=== PATIENT | female | born 1990 | race Hispanic/Latino ===

== ENCOUNTER 2022-08-23 11:44 | Emergency (ER) | payer OTHER, SELFPAY ==
[2022-08-23 11:53] VITALS: BP 140/97; PULSE 80; RESP 12; TEMP 36.4; O2SAT 100
--- NOTE | 2022-08-23 11:54 | ED.FEMALEGU ---
HPI - Female Genitourinary General Chief complaint: Urogenital-Female Stated complaint: UTI Time Seen by Provider: 08/23/22 11:55 Source: patient Mode of arrival: ambulatory Limitations: no limitations History of Present Illness HPI Narrative: Claudia is a 32-year-old female patient presenting to the clinic today with complaints of possible urinary tract infection x3 days. She reports she has had burning at the end of her urinary stream as well as feeling as though she was having incomplete emptying. Denies any abdominal pain, flank pain, fever, or chills. Related Data Allergies Allergy/AdvReac Type Severity Reaction Status Date / Time No Known Allergies Allergy Verified 07/13/21 14:53 Review of Systems Review of Systems: Pertinent positives per HPI. Patient denies any fever, chills, rash, headache, visual changes, dizziness, cough, runny nose, sore throat, shortness of breath, chest pain, palpitations, nausea, vomiting, diarrhea, constipation, abdominal pain. PMFSH Comments At the time of my signature, I reviewed and agree with the nursing past medical, surgical, social, and family history. There is no relevant family history pertinent to the patient complaint. Exam Narrative: General: Well-developed, well nourished, in no apparent distress. Head: Normocephalic, atraumatic. Cardio: Regular rate and rhythm, s1 and s2 normal, no murmur appreciated. Resp: Clear to auscultation bilaterally, no rhonchi, rales, wheezing or rubs. Abdomen: Soft, pliable, bowel sounds present in all quadrants, non-tender to palpation, no organomegly, no CVAT tenderness. Course Course Emergency Course: Portions of this record may have been created with voice recognition software. Level of Care: Express Care Visit Vital Signs Vital signs: Vital Signs Temperature 36.4 C 08/23/22 11:53 Pulse Rate 80 08/23/22 11:53 Respiratory Rate 12 08/23/22 11:53 Blood Pressure 140/97 H 08/23/22 11:53 Pulse Oximetry 100 08/23/22 11:53 Oxygen Delivery Room Air 08/23/22 11:53 Temperature 36.4 C 08/23/22 11:53 Pulse Rate 80 08/23/22 11:53 Respiratory Rate 12 08/23/22 11:53 Blood Pressure 140/97 H 08/23/22 11:53 Pulse Oximetry 100 08/23/22 11:53 Oxygen Delivery Room Air 08/23/22 11:53 Vital signs reviewed MDM - Female Genitourinary MDM Narrative Medical decision making narrative: At the time of visit patient is resting comfortably on the exam table. Urinalysis shows 1+ blood, trace of protein, and 1+ leukocytes. We will send for culture. Will place the patient on Bactrim DS 1 tab twice daily x3 days. Supportive measures were discussed with the patient she voiced understanding of discharge instructions and agrees to treatment plan Differential Diagnosis Differential diagnosis: Likely urinary tract infection and cystitis Lab Data Labs: Urine Glucose Negative Reference Range: Negative Urine Bilirubin Negative Reference Range: Negative Urine Ketone Negative Reference Range: Negative Urine Specific [place] 1.020 Reference Range:1.001-1.035 Urine Blood 1+ Reference Range: Negative * * Urine pH 7.0 Reference Range: 5.0-9.0 Urine Protein Trace Reference Range: Negative Urine Urobilinogen 0.2 Reference Range: 0.2-1.0 Urine Nitrate Negative Reference Range: Negative
== END 2022-08-23 12:05 | disposition home or self-care (01) ==
PROVIDERS: Emergency Provider Nurse Practitioner Family; PCP Family Medicine
DX: N30.01 Acute cystitis with hematuria (principal); J45.909 Unspecified asthma, uncomplicated
CPT/HCPCS: 81003; 87086; 87088; 99213; G0463

== ENCOUNTER 2023-06-03 13:43 | Emergency (ER) | payer OTHER, SELFPAY ==
[2023-06-03 13:55] VITALS: BP 156/109; PULSE 116; RESP 16; TEMP 37.7; O2SAT 100
--- NOTE | 2023-06-03 14:37 | ED.GENADULT ---
HPI - General Adult General Chief complaint: Upper Respiratory Infection Stated complaint: Sore Throat Time Seen by Provider: 06/03/23 14:37 Source: patient Mode of arrival: ambulatory Limitations: no limitations History of Present Illness HPI narrative: 33-year-old female presents with complaint of cough for 3 days. Woke up today with sore throat. Denies body aches, fever, headache, chills. Has not taking any [id number] medications to treat her symptoms. All systems reviewed and negative except as noted above. Related Data Allergies Allergy/AdvReac Type Severity Reaction Status Date / Time No Known Allergies Allergy Verified 06/03/23 14:20 Review of Systems Review of Systems: CONSTITUTIONAL: Denies fever, chills, or sweats. EYES: Denies visual changes, redness, or discharge. ENT: Denies rhinorrhea, congestion . Reports sore throat. Denies otalgia. CARDIOVASCULAR: Denies chest pain, palpitations, or edema. RESPIRATORY: reports cough. Denies dyspnea. GASTROINTESTINAL: Denies abdominal pain, nausea, vomiting, or diarrhea. GENITOURINARY: Denies dysuria or hematuria. SKIN: Denies rash or itching. MUSCULOSKELETAL: Denies back pain, joint pain, or myalgia. NEUROLOGIC: Denies headache, numbness, or weakness. PSYCHIATRIC: Denies anxiety or depression. All other systems reviewed are negative, except as documented in HPI. PMFSH Comments At time of signature, agree with nursing past medical, surgical, social and family history. There is no relevant family history pertinent to the presenting complaint. Exam Narrative: GENERAL: This is a well-nourished, well-developed patient, in no apparent distress. HEAD: normocephalic, atraumatic. EYES: PERRL. Sclera clear/white. Vision is grossly intact. EARS: External ears normal, auditory canals clear and without drainage, TMs normal without perforation. Hearing grossly intact. NOSE: External nose normal with no obvious nasal discharge, nares without redness, no rhinorrhea. THROAT: Mucous membranes moist, erythema and swelling to posterior pharynx, tonsils 1+ bilaterally without exudates. NECK: Neck supple, non-tender without lymphadenopathy, masses or thyromegaly. CARDIOVASCULAR: Regular rate and rhythm without murmurs, gallops, or rubs. RESPIRATORY: Clear to auscultation. Breath sounds equal bilaterally. No wheezes, rales, or rhonchi. SKIN: warm, Dry, intact with no suspicious lesions or rash, good texture and turgor. NEURO: awake, alert, and oriented to person, place and time. There were no obvious focal neurologic abnormalities. EXTREMITIES: No joint tenderness, effusion, or edema noted. Course Course Level of Care: Express Care Visit Vital Signs Vital signs: Vital Signs Temperature 37.7 C H 06/03/23 13:55 Pulse Rate 116 H 06/03/23 13:55 Respiratory Rate 16 06/03/23 13:55 Blood Pressure 156/109 H 06/03/23 13:55 Pulse Oximetry 100 06/03/23 13:55 Oxygen Delivery Room Air 06/03/23 13:55 Temperature 37.7 C H 06/03/23 13:55 Pulse Rate 116 H 06/03/23 13:55 Respiratory Rate 16 06/03/23 13:55 Blood Pressure 156/109 H 06/03/23 13:55 Pulse Oximetry 100 06/03/23 13:55 Oxygen Delivery Room Air 06/03/23 13:55 Reviewed heart rate 98 auscultated Medical Decision Making MDM Narrative Medical decision making narrative: Patient is aware of diagnosis, understands and agrees to treatment plan. Anticipatory guidance given. Patient agrees to follow-up as directed and is aware of reasons to seek care at the emergency department. Portions of this record may have been created with voice recognition software positive rapid strep test. Will treat patient with antibiotic. Differential Diagnosis Differential Diagnosis: strep throat Vital Signs Vital Signs: Vital Signs Temperature 37.7 C H 06/03/23 13:55 Pulse Rate 116 H 06/03/23 13:55 Respiratory Rate 16 06/03/23 13:55 Blood Pressure 156/109 H 06/03/23 13:
== END 2023-06-03 14:50 | disposition home or self-care (01) ==
PROVIDERS: Emergency Provider Nurse Practitioner Family; PCP Family Medicine
DX: J02.0 Streptococcal pharyngitis (principal)
CPT/HCPCS: 87880; 99213; G0463

== ENCOUNTER 2023-10-15 13:57 | Emergency (ER) | payer OTHER, SELFPAY ==
--- NOTE | ~2023-10-15 | CT_ITS ---
EXAMINATION: CT abdomen pelvis wo con DATE: 10/15/2023 15:22 INDICATION: Kidney stones TECHNIQUE: Computed tomography (CT) of the abdomen and pelvis was performed without intravenous contr ast. The dose-length product was 1496.48 mGy-cm. Automated exposure control and iterative reconstruct ion technique were employed. COMPARISON: CT dated 05/15/2015. FINDINGS: Lung bases are unremarkable. Heart size normal. No significant pleural or pericardial effus ion. There is a 3 mm nonobstructing right renal stone. Fatty infiltration of the liver. The spleen, p ancreas, adrenal glands are unremarkable. There is a 2 mm nonobstructing left renal stone. Gallbladde r is contracted. Nonobstructive bowel gas pattern. Normal appendix. Colonic diverticulosis without ev idence for diverticulitis. No acute osseous abnormality. Fat-containing umbilical hernia. No signific ant vascular abnormality. Nonenlarged retroperitoneal lymph nodes, likely reactive. No free air or fr ee fluid. IMPRESSION: 1. Nonobstructing bilateral nephrolithiasis. Reviewed, dictated and finalized at location B.
[2023-10-15 14:13] VITALS: BP 156/103; PULSE 87; RESP 18; TEMP 36.5; O2SAT 99
[2023-10-15 14:54] LABS: Appearance Urine Clear (Clear); Bacteria Urine None Seen /hpf; Bilirubin Urine Negative (Negative); Blood Urine 3+ (Negative); Color Urine Yellow (Yellow); Glucose Urine UA Negative (Negative); Ketones Urine Trace mg/dL (Negative); Leukocyte Esterase Ur Negative LEU/UL (Negative); Mucus Urine Present /lpf; Need Manual Microscopic Reviewed; Nitrate Urine Negative (Negative); Protein Urine Trace mg/dL (Negative); RBC Urine 21-50 /hpf (0-2); Specific Grav Ur 1.022 (1.001-1.035); Squamous Epithelial Cell Urine None Seen /hpf (Few); WBC Urine 0-5 /hpf (0-3); pH Urine 5.5 (5.0-9.0)
[2023-10-15 14:56] LABS: Add Urine Microscopic? YES
--- NOTE | 2023-10-15 14:56 | ED.GENADULT ---
HPI - General Adult General Chief complaint: Back Pain/Injury <Drea Brown October, EMPLOYMENT SERVICES DIRECTOR - Last Filed: 10/15/23 15:00> Stated complaint: LOWER BACK PAIN <Drea Borwn October, - Last Filed: 10/15/23 15:00> Time Seen by Provider: 10/15/23 14:56 <Drea Brown October, EMPLOYMENT SERVICES DIRECTOR - Last Filed: 10/15/23 15:00> Focused HPI: Claudia Herrera is a 33 y/o female who presents with reports of having onset of right flank pain at 1145 that moved down to her right lower abdomen and then started to have dysuria. She states she did notice something pass in her urine today. GENERAL: Well-appearing, well-nourished, and in no acute distress. HEAD: Normocephalic, atraumatic. CHEST: Clear to auscultation. ?No respiratory distress. HEART: Regular rate and rhythm.? NEURO: ?Alert and oriented x3. Patient screened in triage and initial orders placed.? ?Additional care and disposition to be based upon?diagnostic testing and treatment. <Drea Brown October, - Last Filed: 10/15/23 15:00> History of Present Illness HPI narrative: 33-year-old female with reported history of right ureterolithiasis presents to emergency department for right flank pain that started at 11:45 a.m. this morning. Patient states the pain was located her right flank, sharp in nature and was associated with some discomfort with urination and nausea. States she had ?a stabbing pain? when she urinated. She denies fever, vomiting. States she noticed a small speck in her urine while she was in the emergency department. Since then she has not had any symptoms and feels back to her baseline. Denies abdominal pain. <Susan Hernandez PA-C - Last Filed: 10/15/23 18:35> Related Data Allergies/adverse reactions: Allergies Allergy/AdvReac Type Severity Reaction Status Date / Time No Known Allergies Allergy Verified 10/15/23 15:52 <Drea Brown October, EMPLOYMENT SERVICES DIRECTOR - Last Filed: 10/15/23 15:00> Review of Systems Review of Systems: CONSTITUTIONAL: Denies fever, chills, or sweats. EYES: Denies visual changes, redness, or discharge. ENT: Denies rhinorrhea, congestion, sore throat, or otalgia. CARDIOVASCULAR: Denies chest pain, palpitations, or edema. RESPIRATORY: Denies cough or dyspnea. GASTROINTESTINAL: See HPI GENITOURINARY: See HPI SKIN: Denies rash or itching. MUSCULOSKELETAL: Denies back pain, joint pain, or myalgia. NEUROLOGIC: Denies headache, numbness, or weakness. PSYCHIATRIC: Denies anxiety or depression. <Susan Hernandez PA-C - Last Filed: 10/15/23 18:35> Exam Narrative: GENERAL: Well-appearing, well-nourished, and in no acute distress. HEAD: Normocephalic, atraumatic. EYES: PERRLA and EOMI. ENT: Nares clear, no rhinorrhea or epistaxis. Mucous membranes moist. NECK: Supple. CHEST: Clear to auscultation. No respiratory distress. HEART: Regular rate and rhythm. No murmur heard. Normal peripheral pulses. ABDOMEN: Soft, nontender, nondistended, normal active bowel sounds. No rebound, guarding rigidity. No CVA tenderness. EXTREMITIES: Normal range of motion. No edema. SKIN: Warm, dry, no rash. NEURO: No focal deficits. Alert and oriented x3 <Susan Hernandez PA-C - Last Filed: 10/15/23 18:35> Course Vital Signs Vital signs: Vital Signs Temperature 97.7 F 10/15/23 14:13 Pulse Rate 87 10/15/23 14:13 Respiratory Rate 18 10/15/23 14:13 Blood Pressure 156/103 H 10/15/23 14:13 Pulse Oximetry 99 10/15/23 14:13 Temperature 97.7 F 10/15/23 14:13 Pulse Rate 87 10/15/23 14:13 Respiratory Rate 18 10/15/23 14:13 Blood Pressure 156/103 H 10/15/23 14:13 Pulse Oximetry 99 10/15/23 14:13 <Drea Kapadia APRN - Last Filed: 10/15/23 15:00> Vital Signs Temperature 97.7 F 10/15/23 14:13 Pulse Rate 87 10/15/23 14:13 Respiratory Rate 18 10/15/23 14:13 Blood Pressure 156/103 H 10/15/23 14:13 Pulse Oximetry 99 10/15/23 14:13 Temperature 97.7 F 10/15/23 14:13 Pulse Rate 87 10/15/23 14:13 Respirator
[2023-10-15] MEDS: KETOROLAC 30 MG/ML VIAL (*BKC) IV PUSH (15:13)
[2023-10-15 15:23] LABS: Basophils Percent Auto 0.5 % (0.2-1.2); Eosinophils Absolute Auto 0.1 K/mm3 (0-0.3); Hematocrit 41.9 % (37.0-47.0); Hemoglobin 13.3 g/dL (12.0-15.0); Immature Granulocyte Absolute 0.02 K/mm3 (0.00-0.031); Immature Granulocyte Percent A 0.3 % (0-0.5); Lymphocytes Absolute Auto 1.46 K/mm3 (0.9-3.2); Lymphocytes Percent Auto 19.1 % (18.3-44.2); Mean Corpuscular HGB Conc 31.7 g/dl (32-36); Mean Corpuscular Hemoglobin 28.6 pg (26-34); Mean Corpuscular Volume 90.1 fl (80-100); Mean Platelet Volume 10.4 fl (7.4-10.4); Monocytes Absolute Auto 0.4 K/mm3 (0.1-0.6); Monocytes Percent Auto 4.7 % (2.6-8.5); Neutrophils Absolute Auto 5.7 K/mm3 (1.3-6.7); Neutrophils Percent Auto 74.4 % (45.5-73.1); Platelet Count Result 243 k/mm3 (150-375); Red Blood Count 4.65 M/mm3 (4.2-5.4); Red Cell Distribution Width 13.2 % (11.5-14.5); White Blood Count 7.7 K/mm3 (4.5-10.0)
[2023-10-15 15:34] LABS: Anion Gap 7 mmol/L (4-12); Blood Urea Nitrogen 11 mg/dL (7-17); Calcium 9.1 mg/dL (8.4-10.2); Carbon Dioxide 21 mmol/L (22-30); Chloride 113 mmol/L (98-107); Estimated CRCL calculation 93 ml/min; Estimated Glomerular Filt Rate > 60; Glucose 106 mg/dL (65-110); Potassium 3.7 mmol/L (3.4-5.0); Sodium 141 mmol/L (137-145)
[2023-10-15] MEDS: SODIUM CHLORIDE 0.9% IV 1,000 ML 999 ML IV CONT (15:56)
[2023-10-15 18:52] VITALS: BP 157/90; PULSE 69; RESP 20; O2SAT 98
== END 2023-10-15 18:53 | disposition home or self-care (01) ==
PROVIDERS: Emergency Medicine; Nurse Practitioner Family; Emergency Provider Physician Assistant; PCP Family Medicine
DX: N20.0 Calculus of kidney (principal)
CPT/HCPCS: 36415; 74176; 80048; 81001; 81025; 85025; 96361; 96374; 99284; J1885; J7030

== ENCOUNTER 2024-09-26 16:52 | Emergency (ER) | payer OTHER, SELFPAY ==
--- NOTE | 2024-09-26 16:54 | ED_ITS ---
HPI - Female Genitourinary General Chief complaint: Urogenital-Female Stated complaint: UTI Time Seen by Provider: 09/26/24 16:54 Source: patient Mode of arrival: ambulatory Limitations: no limitations History of Present Illness HPI Narrative: Claudia is a 34-year-old female patient presenting to the clinic today with complaints of a possible UTI. She reports she is having urinary frequency and urgency with some suprapubic pain. Denies any fevers, chills, or flank pain. Symptoms have been going on for 2 days. Related Data Home Medications ?Medication ?Instructions ?Recorded ?Confirmed ?Last Taken ?Type etonogestrel 0.12 mg-ethinyl vag ring vaginal 09/26/24 Unknown History estradiol 0.015 mg/24 hr vaginal ring (EluRyng) Allergies Allergy/AdvReac Type Severity Reaction Status Date / Time No Known Allergies Allergy Verified 09/26/24 16:54 Review of Systems Review of Systems: Pertinent positives per HPI. Patient denies any fever, chills, rash, headache, visual changes, dizziness, cough, runny nose, sore throat, shortness of breath, chest pain, palpitations, nausea, vomiting, diarrhea, constipation, abdominal pain, or any urinary issues. PMFSH Comments At the time of my signature, I reviewed and agree with the nursing past medical, surgical, social, and family history. There is no relevant family history pertinent to the patient complaint. Exam Narrative: General: Well-developed, morbidly obese, in no apparent distress. Head: Normocephalic, atraumatic. Cardio: Regular rate and rhythm, s1 and s2 normal, no murmur appreciated. Resp: Clear to auscultation bilaterally, no rhonchi, rales, wheezing or rubs. Abdomen: Soft, pliable, bowel sounds present in all quadrants, non-tender to palpation, no organomegly, no CVAT tenderness. Course Course Emergency Course: Portions of this record may have been created with voice recognition software. Level of Care: Express Care Visit Vital Signs Vital signs: Vital Signs Temperature 36.9 C 09/26/24 17:02 Pulse Rate 101 H 09/26/24 17:02 Respiratory Rate 20 09/26/24 17:02 Blood Pressure 155/102 H 09/26/24 17:02 Pulse Oximetry 100 09/26/24 17:02 Oxygen Delivery Room Air 09/26/24 17:02 Temperature 36.9 C 09/26/24 17:02 Pulse Rate 101 H 09/26/24 17:02 Respiratory Rate 20 09/26/24 17:02 Blood Pressure 155/102 H 09/26/24 17:02 Pulse Oximetry 100 09/26/24 17:02 Oxygen Delivery Room Air 09/26/24 17:02 Vital signs reviewed MDM - Female Genitourinary MDM Narrative Medical decision making narrative: At the time of visit patient is resting comfortably on the exam table. Patient appears to be nontoxic. Labs: Urinalysis positive for leukocytes and blood. We will send urine for culture. Plan: I suspect patient has acute cystitis. Prescription for Macrobid was sent to the pharmacy. Supportive measures were discussed with the patient and they voiced understanding discharge instructions and agrees to treatment plan. Return precautions reviewed Differential Diagnosis Differential diagnosis: Likely urinary tract infection and cystitis Lab Data Labs: Lab Results 09/26/24 Range/Units 17:07 POC Urine Color Yellow POC Urine Clarity Clear POC Urine pH 6.0 POC Ur Specif [place] 1.020 POC Urine Protein Negative (Negative) POC Ur Glucose (UA) Negative (Negative) POC Urine Ketones Negative (Negative) POC Urine Blood Trace (Negative) POC Urine Nitrite Negative (Negative) POC Urine Bilirubin Negative (Negative) POC Urine Urobilinogen 0.2 POC U Leukocyte Esteras 1+ (Negative) Discharge Plan Discharge Clinical Impression: Urinary tract infection Qualifiers: Urinary tract infection type: acute cystitis Hematuria presence: with hematuria Qualified Code(s): N30.01 - Acute cystitis with hematuria Patient Disposition: Home Condition: Stable Instructions: Antibiotic Form, Urinary Tract Infection in Women (ED) Additional Instructions: Urinalysis positive for leukocytes blood. Take Macrobid as prescribed Increase fluids and stay well hydrated Wipe front to back. May use wet wipes. Avoid tub baths If sexually active- pee before and after intercourse. Wear cotton panties Avoid tight clothing up against the genitals Follow up with your PCP in 1 week if symptoms persist. Patient Language: Pashto Prescriptions: New nitrofurantoin monohyd/m-cryst [Macrobid] 100 mg capsule 100 mg PO Q12H 5 Days Qty: 10 0RF Rx Instructions: must administer with a meal/food No Action etonogestrel-ethinyl estradiol [EluRyng] 0.12-0.015 mg/24 hr ring VAGINAL Follow-up/Referrals: Nic Gonzalez MD [Primary Care Provider] - Time of Disposition: 17:11 Quality NIHSS Nursing Documentation ED NIHSS nursing documentation: reviewed/agree
[2024-09-26 17:02] VITALS: BP 155/102; PULSE 101; RESP 20; TEMP 36.9; O2SAT 100
[2024-09-26 17:10] LABS: EDUAAPPEAR Clear; EDUABILI Negative (Negative); EDUABLOOD Trace (Negative); EDUACOLOR1 Yellow; EDUAGLUCOSE Negative (Negative); EDUAKETONE Negative (Negative); EDUALEUKO 1+ (Negative); EDUANITRATE Negative (Negative); EDUAPROTEIN Negative (Negative); EDUAUROBILI 0.2
== END 2024-09-26 17:15 | disposition home or self-care (01) ==
PROVIDERS: Emergency Provider Nurse Practitioner Family; PCP Family Medicine
DX: N30.01 Acute cystitis with hematuria (principal)
CPT/HCPCS: 81003; 87086; 87186; 99213; G0463